=== PATIENT | male | born 1975 | race Two or more races ===

== ENCOUNTER 2017-05-31 22:08 | Emergency (ER) | payer SELFPAY ==
[~2017-05-31] VITALS: Ht 177.8 cm; Wt 118.0 kg
[2017-05-31 22:23] VITALS: BP 152/99
== END 2017-06-01 02:15 | disposition left against medical advice (07) ==
LOC: ER 22:23
DX: Z53.21 Procedure and treatment not carried out due to patient leaving prior to being seen by health care provider (principal)